=== PATIENT | male | born 1935 | race Caucasian/White ===

== ENCOUNTER → 2024-04-19 13:12 | Outpatient (REF) | payer OTHER, SELFPAY | LOC: HWRAD 13:12 | PROVIDERS: ATTENDING PHYSICIAN Family Medicine | DX: M25.552 Pain in left hip (principal) | CPT/HCPCS: 73502 ==

== ENCOUNTER → 2024-07-24 07:07 | Outpatient (REF) | payer OTHER, SELFPAY ==
--- NOTE | 2024-07-24 17:29 | EEGC.RPT ---
Continuous EEG Report
Recording
Start Date of Data Reviewed: 07/24/24
End Date of Data Reviewed: 07/24/24
Done with Video Recording: Yes
Electrocardiogram: Unremarkable
Report
TECHNICAL REMARKS:��This is a technically satisfactory eighteen channel record employing 21 disc electrodes applied according to a measured international 10-20 electrode placement system.��There were no significant technical difficulties.��The study
was done on a [employer] System.
STUDY DURATION: 29 min 2 sec
MEDICATIONS:� No AED
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 �This study was requested to look for epileptiform activity.
REPORT: �At the onset of the EEG, the patient is drowsy.� During brief time of wakefulness the background activity consists of 6�7 Hz, impersistent, posteriorly dominant, moderate amplitude, symmetric, and rhythmic activity.� Intermittent
generalized, 2-3 Hz, 30-50 uV polymorphic delta activity was seen.� Stepwise intermittent photic stimulation (1-31 Hz) did not induce additional abnormalities. Hyperventilation was not performed. No epileptiform activity was seen.�
�
IMPRESSION: �This is an abnormal awake and drowsy EEG due to a moderate to severe generalized slowing. This finding indicates diffuse cerebral dysfunction, nonspecific in terms of etiology.
== END ==
LOC: EEG 07:07
PROVIDERS: ATTENDING PHYSICIAN Family Medicine
DX: R40.1 Stupor (principal)
CPT/HCPCS: 95816

== ENCOUNTER → 2024-07-25 15:06 | Outpatient (REF) | payer OTHER, SELFPAY | LOC: RAD 15:06 | PROVIDERS: ATTENDING PHYSICIAN Family Medicine | DX: R55 Syncope and collapse (principal) | CPT/HCPCS: 70470; Q9967 ==

== ENCOUNTER → 2024-08-21 15:36 | Outpatient (REF) | payer OTHER, SELFPAY | LOC: HWRCS 15:36 | PROVIDERS: ATTENDING PHYSICIAN Nurse Practitioner; FAMILY PHYSICIAN Family Medicine | DX: R55 Syncope and collapse (principal); I50.22 Chronic systolic (congestive) heart failure | CPT/HCPCS: 93306 ==